=== PATIENT | female | born 1980 | race Caucasian/White ===

== ENCOUNTER 2016-04-20 09:44 | Emergency (ER) | payer OTHER ==
[2016-04-20 09:57] VITALS: BP 118/83; PULSE 93; TEMP 98; BMI 26.6
--- NOTE | 2016-04-20 10:15 | PDOC ---
History of Present Illness - General Chief Complaint: Cold Symptoms Stated Complaint: COUGH CHEST PAIN FOR 3 DAYS Time Seen by Provider: 04/20/16 09:47 - History of Present Illness Initial Comments: 04/20/16 10:11 35-year-old female with a negative past medical history She is on no medications, NKDA Patient is complaining of one to 2 days of a dry cough, associated with anterior chest pain with cough only She states the cough is nonproductive It is associated with a dry throat with a mild sore throat She denies any fevers or chills She does admit to some mild fullness in her ears She denies any myalgias She denies any calf swelling or pain She states she did not have the flu shot this year She denies any headache She denies any other complaints at this time Past History - Past Medical History Allergies/Adverse Reactions: Allergies Allergy/AdvReac Type Severity Reaction Status Date / Time No Known Allergies Allergy Verified 04/20/16 09:52 Home Medications: Ambulatory Orders NK [No Known Home Medication] 04/20/16 Suicide Attempt (Hx): No Other medical history: DENIES - Immunization History Immunization Up to Date: Yes - Psycho/Social/Smoking Cessation Hx Anxiety: No Suicidal Ideation: No Smoking History: Never smoked Have you smoked in the past 12 months: No Information on smoking cessation initiated: No Hx Alcohol Use: No Drug/Substance Use Hx: No Substance Use Type: None Review of Systems - Review of Systems Able to Perform ROS?: Yes Comments:: 04/20/16 10:13 Review of systems is as per history of present illness and otherwise negative *Physical Exam - Vital Signs Last Vital Signs Temp Pulse Resp BP Pulse Ox 98 F 93 H 20 118/83 98 04/20/16 09:44 04/20/16 09:44 04/20/16 09:44 04/20/16 09:44 04/20/16 09:44 - Physical Exam Comments: 04/20/16 10:13 Physical exam Last Vital Signs Temp Pulse Resp BP Pulse Ox 98 F 93 H 20 118/83 98 04/20/16 09:44 04/20/16 09:44 04/20/16 09:44 04/20/16 09:44 04/20/16 09:44 GENERAL: The patient is awake, alert, and fully oriented, and in no apparent distress. HEAD: Normal with no signs of trauma. EYES: Sclera anicteric, conjunctiva normal ENT: There is mild fluid behind the TMs bilaterally, but no erythema or infection The throat is mildly erythematous without exudate NECK: Normal range of motion, supple LUNGS: Breath sounds equal, clear to auscultation bilaterally. No wheezes, and no crackles. CHEST WALL: There is tenderness to palpation of the costochondral junctions bilaterally The patient coughed, and states that that caused her to have pain in the area of the costochondral junctions HEART: Regular rate and rhythm, normal S1 and S2 without murmur, rub or gallop. ABDOMEN: Soft, nontender, normoactive bowel sounds. No guarding, no rebound. No masses appreciated. EXTREMITIES: Normal range of motion, no edema. No clubbing or cyanosis. No cords, erythema, or tenderness. NEUROLOGICAL: Cranial nerves II through XII grossly intact. Normal speech, normal gait. PSYCH: Normal mood, normal affect. SKIN: Warm, Dry, normal turgor, no rashes or lesions noted. ED Treatment Course - RADIOLOGY Radiology Studies Ordered: Category Date Time Status CHEST PA & LAT [RAD] Stat Radiology 04/20/16 09:59 Ordered Medical Decision Making - Medical Decision Making 04/20/16 10:15 Most likely viral URI with costochondral pain due to coughing Cough is dry and nonproductive 04/20/16 11:00 Rapid strep negative Chest x-ray PA and lateral-NAD 04/20/16 11:10 EKG Normal sinus rhythm 69, Normal AV and IV conduction time Normal QTC Normal EKG 04/20/16 11:11 Impression-viral URI/viral bronchitis With musculoskeletal chest pain *DC/Admit/Observation/Transfer Diagnosis at time of Disposition: Upper respiratory infection, Viral bronchitis, Musculoskeletal chest pain - Discharge Dispostion Disposition: HOME Condition at time of disposition: Good - Patient Instructions Printed Discharge Instructions: DI for Viral Upper Respiratory Infection -- Adult Additional Instructions: use any [id number] cough or cold preparations that works well for you Rest, increase fluid intake Motrin for the chest wall pain if needed-please check your cough or cold preparation to make sure that it does not also contain Motrin Followup with your primary care physician in 24-48 hours Return immediately if you worsen in any way Take your medications as directed - Post Discharge Activity Work/School Note: Back to Work
--- NOTE | 2016-04-21 12:08 | EKG ---
Test Reason : Blood Pressure : / mmHG Vent. Rate : 069 BPM Atrial Rate : 069 BPM P-R Int : 166 ms QRS Dur : 078 ms QT Int : 406 ms P-R-T Axes : 040 -09 036 degrees QTc Int : 435 ms NORMAL SINUS RHYTHM WITH SINUS ARRHYTHMIA NORMAL ECG NO PREVIOUS ECGS AVAILABLE Confirmed by DICK ARNDT MD ([id number]) on 04/21/2016 12:07:59 PM Referred By: MATT MURO Confirmed By:DICK ARNDT MD
== END 2016-04-20 11:17 | disposition home or self-care (01) ==
LOC: FER 09:44
DX: M79.1 Myalgia (principal); J06.9 Acute upper respiratory infection, unspecified; J20.8 Acute bronchitis due to other specified organisms; B97.89 Other viral agents as the cause of diseases classified elsewhere
CPT/HCPCS: 71020-TC; 87070; 87430; 87804; 93005; 99283-25

== ENCOUNTER 2016-04-23 01:25 | Emergency (ER) | payer OTHER ==
--- NOTE | 2016-04-23 01:29 | PDOC ---
History of Present Illness - General Chief Complaint: Pain, Acute Stated Complaint: CHEST PAIN Time Seen by Provider: 04/23/16 01:28 - History of Present Illness Initial Comments: This 35-year-old woman with no significant past medical history presents with several day history of nonproductive cough and body aches. Patient was seen here on 04/19 with same symptoms. She was discharged with instructions to rest, take Motrin as needed for musculoskeletal chest pain. Patient states that she has taken an occasional Motrin but continues to have tenderness of her chest wall and pain on deep breathing, as well as general body aches. Her cough has not worsened and she denies shortness of breath/wheezing. She has occasional chills but has had no measured fever. She has not had gastrointestinal symptoms and is able to drink fluids without difficulty. She denies stiff neck/rash. Patient states that she has been continuing to go to classes this week. Patient denies smoking or previous respiratory illnesses. Past History - Past Medical History Allergies/Adverse Reactions: Allergies Allergy/AdvReac Type Severity Reaction Status Date / Time No Known Allergies Allergy Verified 04/23/16 01:28 Home Medications: Ambulatory Orders Diclofenac Sodium [Voltaren -] 75 mg PO BID PRN #20 tablet. 04/23/16 Suicide Attempt (Hx): No - Immunization History Immunization Up to Date: Yes - Psycho/Social/Smoking Cessation Hx Anxiety: No Suicidal Ideation: No Smoking History: Never smoked Have you smoked in the past 12 months: No Hx Alcohol Use: No Drug/Substance Use Hx: No Substance Use Type: None Review of Systems - Review of Systems Able to Perform ROS?: Yes Comments:: 12 point review of systems is negative except for what is noted in the history of present illness *Physical Exam - Physical Exam Comments: GENERAL: HEAD: Normal with no signs of trauma. EYES: PERRLA, EOMI, sclera anicteric, conjunctiva clear. ENT: Ears normal, nares patent, oropharynx clear without exudates. Dry mucous membranes. NECK: Normal range of motion, supple without lymphadenopathy, JVD, or masses. LUNGS: Breath sounds equal, clear to auscultation bilaterally. No wheezes, and no crackles. CHEST WALL: tenderness on palpation, especially sternum and costochondral junctions no crepitus or step offs HEART:Regular rate and rhythm, normal S1 and S2 without murmur, rub or gallop. ABDOMEN:.normal bowel sounds No guarding,tenderness or rebound.No masses No distention. EXTREMITIES: Normal range of motion, no edema. No clubbing or cyanosis. No erythema, or tenderness. NEUROLOGICAL: Cranial nerves II through XII grossly intact. Normal speech. No focal neurological deficits. MUSCULOSKELETAL: Back non-tender to palpation, no CVA tenderness SKIN: Warm, Dry, normal turgor, no rashes or lesions noted. Twelve-lead electrocardiogram is performed. This shows sinus tachycardia at 111 bpm. [place], intervals and wave forms are all normal. There is no change compared to EKG performed on04/20/16 Medical Decision Making - Medical Decision Making Clinical presentation most consistent with viral bronchitis and musculoskeletal chest wall pain Toradol 60mg IM administered Diclofenac 75mg TID(#20) prescription sent to patient's pharmacy. The patient should rest and not attend classes for the next 2 days(Documentation provided) She should drink plenty of water and use decongestant/antihistamine as needed *DC/Admit/Observation/Transfer Diagnosis at time of Disposition: Musculoskeletal chest pain Upper respiratory infection Qualifiers: URI type: unspecified viral URI Qualified Code(s): J06.9 - Acute upper respiratory infection, unspecified - Discharge Dispostion Disposition: HOME Condition at time of disposition: Stable - Prescriptions Prescriptions: Diclofenac Sodium [Voltaren -] 75 mg PO BID PRN #20 tablet.dr HICKS Reason: Pain - Patient Instructions Printed Discharge Instructions: DI for Viral Syndrome Additional Instructions: rest; drink plenty of water can use over the counter antihistamine/decongestants diclofenac 75mg up to 3 times a day for muscle pain no classes for the next 2 days - Post Discharge Activity Work/School Note: Back to School
[2016-04-23 01:36] VITALS: BP 133/85; PULSE 106; TEMP 97.4; BMI 27.4
[2016-04-23] MEDS ORDERED: KETOROLAC TROMETHAMINE 60 MG/2 ML VIAL IM ONE (01:54)
[2016-04-23] MEDS ORDERED: KETOROLAC TROMETHAMINE 60 MG/2 ML VIAL ONE (01:55)
--- NOTE | 2016-04-24 12:13 | EKG ---
Test Reason : Blood Pressure : / mmHG Vent. Rate : 111 BPM Atrial Rate : 111 BPM P-R Int : 164 ms QRS Dur : 076 ms QT Int : 332 ms P-R-T Axes : 047 -10 048 degrees QTc Int : 451 ms SINUS TACHYCARDIA OTHERWISE NORMAL ECG WHEN COMPARED WITH ECG OF 20-APR-2016 11:05, VENT. RATE HAS INCREASED BY 42 BPM Confirmed by JENNIFER PETTIT MD ([id number]) on 04/24/2016 12:12:58 PM Referred By: DR LÓPEZ Confirmed By:JENNIFER PETTIT MD
== END 2016-04-23 02:05 | disposition home or self-care (01) ==
LOC: FER 01:25
PROC: 3E0233Z Introduction of Anti-inflammatory into Muscle, Percutaneous Approach (ICD-10-PCS; principal; 2016-04-23)
DX: J06.9 Acute upper respiratory infection, unspecified (principal); M79.1 Myalgia
CPT/HCPCS: 93005; 96372; 99281-25